=== PATIENT | female | born 1990 | race Caucasian/White ===

== ENCOUNTER 2024-05-31 17:35 | Emergency (ER) | payer MEDICAID ==
[~2024-05-31] VITALS: Ht 165.1 cm; Wt 79.0 kg
[2024-05-31 17:45] VITALS: O2SAT 100
[2024-05-31 17:46] VITALS: BP 135/83; PULSE 84; RESP 16; TEMP 98.5; O2SAT 99
== END 2024-05-31 20:26 | disposition left against medical advice (07) ==
LOC: ER 17:35
DX: M79.622 Pain in left upper arm (principal); Z53.21 Procedure and treatment not carried out due to patient leaving prior to being seen by health care provider